=== PATIENT | male | born 1965 | race Caucasian/White ===

== ENCOUNTER 2021-05-22 12:03 | Emergency (ER) | payer SELFPAY | END 2021-05-22 13:00 | disposition home or self-care (01) | LOC: CSHERS 12:03 | DX: S80.11XA Contusion of right lower leg, initial encounter (principal); E11.9 Type 2 diabetes mellitus without complications; W19.XXXA Unspecified fall, initial encounter | CPT/HCPCS: 99283 ==

== ENCOUNTER 2021-07-24 14:05 | Emergency (ER) | payer SELFPAY | END 2021-07-24 15:45 | disposition home or self-care (01) | LOC: CSHERS 14:05 | DX: L03.116 Cellulitis of left lower limb (principal); E11.9 Type 2 diabetes mellitus without complications | CPT/HCPCS: 99283 ==

== ENCOUNTER 2022-04-13 04:48 | Emergency (ER) | payer SELFPAY ==
[2022-04-13] MEDS ORDERED: Mupirocin 2% Ointment 22 GM Tube TOP SCH (05:45)
== END 2022-04-13 06:05 | disposition home or self-care (01) ==
LOC: CSHERS 04:48
DX: L73.9 Follicular disorder, unspecified (principal); E11.9 Type 2 diabetes mellitus without complications
CPT/HCPCS: 99282

== ENCOUNTER 2022-04-30 10:16 | Emergency (ER) | payer SELFPAY | END 2022-04-30 10:56 | disposition home or self-care (01) | LOC: CSHERS 10:16 | DX: L03.221 Cellulitis of neck (principal); E11.9 Type 2 diabetes mellitus without complications; F17.210 Nicotine dependence, cigarettes, uncomplicated; Z79.84 Long term (current) use of oral hypoglycemic drugs; Z79.899 Other long term (current) drug therapy | CPT/HCPCS: 99283 ==

== ENCOUNTER 2022-12-21 14:25 | Emergency (ER) | payer SELFPAY | END 2022-12-21 16:00 | disposition home or self-care (01) | LOC: CSHERS 14:25 | DX: S20.469A Insect bite (nonvenomous) of unspecified back wall of thorax, initial encounter (principal); L03.312 Cellulitis of back [any part except buttock and flank]; E11.9 Type 2 diabetes mellitus without complications; F17.210 Nicotine dependence, cigarettes, uncomplicated; W57.XXXA Bitten or stung by nonvenomous insect and other nonvenomous arthropods, initial encounter; Z79.899 Other long term (current) drug therapy | CPT/HCPCS: 99283 ==

== ENCOUNTER 2024-10-16 09:17 | Emergency (ER) | payer SELFPAY | END 2024-10-16 09:48 | disposition home or self-care (01) | LOC: CSHERS 09:17 | DX: L30.9 Dermatitis, unspecified (principal); E11.9 Type 2 diabetes mellitus without complications; F17.210 Nicotine dependence, cigarettes, uncomplicated | CPT/HCPCS: 99282 ==